=== PATIENT | female | born 1970 | race Two or more races ===

== ENCOUNTER 2023-03-31 13:03 | Emergency (ER) | payer OTHER ==
[2023-03-31] MEDS ORDERED: SODIUM CHLORIDE 0.9% 500 ML INFUS.BAG IV ONE (13:38)
[2023-03-31] MEDS ORDERED: ONDANSETRON 4 MG/2 ML VIAL IVPUSH ONE (13:38)
[2023-03-31 13:51] LABS: HEMATOCRIT 43.6 % (32.4-45.2); HEMOGLOBIN 14.7 G/dL (10.7-15.3); MCH 31.1 pg (25.7-33.7); MCHC 33.6 g/dl (32.0-36.0); MEAN CELL VOLUME 92.4 fl (80-96); MEAN PLT VOLUME 9.7 fl (7.5-11.1); RBC 4.72 10^6/uL (3.60-5.2); RDW 13.9 % (11.6-15.6); WHITE BLOOD COUNT 17.7 10^3/uL (4.0-10.8)
[2023-03-31 14:10] LABS: ALBUMIN 4.4 g/dl (3.4-5.0); ALK PHOS 37 U/L (45-117); ANION GAP 8 mmol/L (4-13); BILIRUBIN,TOTAL 1.3 mg/dl (0.2-1); CALCIUM 8.7 mg/dl (8.5-10.1); CHLORIDE 103 mmol/L (98-107); CO2 29 mmol/L (21-32); CREATININE 0.7 mg/dl (0.6-1.3); GLUCOSE,RANDOM 107 mg/dl (74-106); POTASSIUM 3.3 mmol/L (3.5-5.1); SGOT/AST 15 U/L (15-37); SGPT/ALT 13 U/L (7-52); SODIUM 140 mmol/L (136-145); TOT PROT 6.7 g/dl (6.4-8.2)
[2023-03-31 14:44] LABS: PLATELET ESTIMATE ADEQUATE
[2023-03-31] MEDS ORDERED: POTASSIUM CHLORIDE ORAL LIQUID 20 MEQ/15 ML PO ONE (14:53)
[2023-03-31 15:03] VITALS: BP 113/74; PULSE 100; RESP 18; TEMP 99.3; BMI 29.5
[2023-03-31 15:07] LABS: HCG,QUALITATIVE URINE Negative
[2023-03-31] MEDS ORDERED: POTASSIUM CHLORIDE ORAL LIQUID 20 MEQ/15 ML ONE (15:07)
[2023-03-31 15:19] LABS: LIPASE 77 U/L (73-393)
[2023-03-31 15:33] LABS: AMORP URATES FEW /hpf (NONE SEEN)
== END 2023-03-31 15:51 | disposition home or self-care (01) ==
LOC: FER 13:03
PROC: 3E033GC Introduction of Other Therapeutic Substance into Peripheral Vein, Percutaneous Approach (ICD-10-PCS; principal; 2023-03-31)
DX: R07.9 Chest pain, unspecified (principal); R11.2 Nausea with vomiting, unspecified; R19.7 Diarrhea, unspecified; E87.6 Hypokalemia
CPT/HCPCS: 36415; 71046-TC-FY; 80053; 81003; 81015; 83690; 84484; 84703; 85027; 87086; 93005; 99285-25

== ENCOUNTER 2023-12-08 19:41 | Emergency (ER) | payer OTHER ==
[2023-12-08 19:50] VITALS: BMI 29.5
[2023-12-08 19:58] VITALS: BP 131/89; PULSE 86; RESP 18; TEMP 97.3
[2023-12-08] MEDS ORDERED: ACETAMINOPHEN INJECTION 100 ML ONE (20:02)
[2023-12-08 20:25] LABS: HEMATOCRIT 43.9 % (32.4-45.2); HEMOGLOBIN 14.4 G/dL (10.7-15.3); MCH 29.6 pg (25.7-33.7); MCHC 32.7 g/dl (32.0-36.0); MEAN CELL VOLUME 90.8 fl (80-96); MEAN PLT VOLUME 10.3 fl (7.5-11.1); PLATELET COUNT 196.3 10^3/uL (134-434); RBC 4.84 10^6/uL (3.60-5.2); RDW 14.2 % (11.6-15.6); WHITE BLOOD COUNT 9.7 10^3/uL (4.0-10.8)
[2023-12-08 20:42] LABS: ALBUMIN 4.3 g/dl (3.4-5.0); BILIRUBIN,TOTAL 1.2 mg/dl (0.2-1); CALCIUM 9.6 mg/dl (8.5-10.1); CREATININE 0.6 mg/dl (0.6-1.3); TOT PROT 6.8 g/dl (6.4-8.2)
[2023-12-08 20:56] LABS: PLATELET ESTIMATE ADEQUATE
[2023-12-08] MEDS: SODIUM CHLORIDE 1,000 ML IV STA (20:56)
[2023-12-08] MEDS: ACETAMINOPHEN 1000 MG/100 ML BAG IVPB ONE (21:24)
[2023-12-08] MEDS: SODIUM CHLORIDE 0.9% 500 ML INFUS.BAG IV ONE (21:24)
== END 2023-12-08 21:52 | disposition home or self-care (01) ==
LOC: FER 19:41
PROC: 3E033NZ Introduction of Analgesics, Hypnotics, Sedatives into Peripheral Vein, Percutaneous Approach (ICD-10-PCS; principal; 2023-12-08)
PROC: 3E0337Z Introduction of Electrolytic and Water Balance Substance into Peripheral Vein, Percutaneous Approach (ICD-10-PCS; 2023-12-08)
DX: K52.9 Noninfective gastroenteritis and colitis, unspecified (principal); R11.2 Nausea with vomiting, unspecified
CPT/HCPCS: 36415; 80053; 85027; 99284-25; J0131